=== PATIENT | female | born 1975 | race Caucasian/White ===

== ENCOUNTER → 2018-03-05 | Outpatient (CLI) | payer OTHER ==
[~2018-03-05] VITALS: Ht 264.2 cm; Wt 136.6 kg
[~2018-03-05] MED LIST: AMOX875T PO; BCPILLS PO; MONT1TAB5 PO; ONDA4TAB10 SL; OXYC-737 PO
[2018-03-05 14:53] VITALS: BP 139/81; PULSE 102; Ht 264.2 cm; Wt 136.6 kg
== END | disposition home or self-care (01) ==
LOC: C.NEUR 13:54
PROVIDERS: ATTEND Internal Medicine Pulmonary Disease
DX: G47.30 Sleep apnea, unspecified (principal); G47.00 Insomnia, unspecified; E66.01 Morbid (severe) obesity due to excess calories; R53.83 Other fatigue; R06.83 Snoring; J34.2 Deviated nasal septum

== ENCOUNTER 2024-08-01 06:37 | Observation (INO) ==
--- NOTE | 2024-07-01 11:34 | PAT Medication Instructions ---
Medication Instructions Date of Service July 01, 2024 Home Medications Medication Instructions Recorded albuterol sulfate 90 mcg/actuation 3 puffs inhalation Q6H PRN 03/03/20 aerosol inhaler shortness of breath or wheezing #8.5 grams estradiol 0.05 mg/24 hr semiweekly 1 patch transdermal 2XWK #8 ea 06/17/24 transdermal patch estradiol 0.01% (0.1 mg/gram) 1 appful vaginal 3XWK #42.5 grams 06/24/24 vaginal cream (Estrace) acetaminophen 500 mg capsule 1,000 mg PO Q6H PRN montelukast 10 mg tablet 10 mg PO HS albuterol sulfate 90 mcg/actuation aerosol inhaler 3 puffs inhalation Q6H PRN artificial tears(hypromellose) 0.3 % eye gel (GenTeal Tears Severe) 1 drp OPB HS pediatric multivitamin no.7-folic acid 100 mcg chewable tablet (Flintstones Tab Chew) 100 mcg PO DAILY carboxymethylcellulose sodium 0.25 % eye drops in a dropperette (TheraTears) 1 drp ophthalmic (eye) QAM PRN creatine monohydrate 4 ea PO DAILY diphenhydramine HCl 25 mg capsule (Benadryl) 25 mg PO TID PRN escitalopram oxalate 5 mg tablet 5 mg PO HS melatonin 3 mg tablet 3 mg PO HS PRN estradiol 0.05 mg/24 hr semiweekly transdermal patch 1 patch transdermal 2XWK estradiol 0.01% (0.1 mg/gram) vaginal cream (Estrace) 1 appful vaginal 3XWK fexofenadine 180 mg tablet (Allergy Relief (fexofenadine)) 180 mg PO QAM fluticasone propionate 50 mcg/actuation nasal spray,suspension 2 spray intranasal QAM PRN meloxicam 15 mg tablet 15 mg PO QAM progesterone micronized 100 mg capsule (Prometrium) 100 mg PO HS Continue as directed carboxymethylcellulose sodium 0.25 % eye drops in a dropperette (TheraTears) 1 d rp ophthalmic (eye) QAM PRN(if needed) fluticasone propionate 50 mcg/actuation nasal spray,suspension 2 spray intranasal QAM PRN(if needed) ASK your surgeon for instructions meloxicam 15 mg tablet 15 mg PO QAM ASK your prescriber and surgeon estradiol 0.05 mg/24 hr semiweekly transdermal patch 1 patch transdermal 2XWK progesterone micronized 100 mg capsule (Prometrium) 100 mg PO HS STOP taking 2 weeks before surgery (or as soon as possible if surgery is within 2 weeks) creatine monohydrate 4 ea PO DAILY STOP taking 24 hours before surgery estradiol 0.01% (0.1 mg/gram) vaginal cream (Estrace) 1 appful vaginal 3XWK DO NOT take the morning of surgery pediatric multivitamin no.7-folic acid 100 mcg chewable tablet (Flintstones Tab Chew) 100 mcg PO DAILY diphenhydramine HCl 25 mg capsule (Benadryl) 25 mg PO TID PRN fexofenadine 180 mg tablet (Allergy Relief (fexofenadine)) 180 mg PO QAM Take morning of surgery With a small sip of water, OTHERWISE NOTHING TO EAT OR DRINK AFTER MIDNIGHT: acetaminophen 500 mg capsule 1,000 mg PO Q6H PRN(if needed) albuterol sulfate 90 mcg/actuation aerosol inhaler 3 puffs inhalation Q6H PRN (use if needed; please bring with you to hospital day of surgery if possible) Take evening before surgery acetaminophen 500 mg capsule 1,000 mg PO Q6H PRN(if needed) albuterol sulfate 90 mcg/actuation aerosol inhaler 3 puffs inhalation Q6H PRN(if needed) artificial tears(hypromellose) 0.3 % eye gel (GenTeal Tears Severe) 1 drp OPB HS diphenhydramine HCl 25 mg capsule (Benadryl) 25 mg PO TID PRN(if needed) escitalopram oxalate 5 mg tablet 5 mg PO HS melatonin 3 mg tablet 3 mg PO HS PRN(if needed) Other Notes If you have any questions please call us at [phone] or [phone] or [phone] or [phone]
--- NOTE | 2024-07-13 08:28 | Anesthesiology Consultation ---
Date of Service July 13, 2024 Assessment & Plan (1) Encounter for pre-operative examination: Plan - check urine test STAT am DOS. - anesthesia concerns: patient states would like general anesthesia for upcoming surgery due to history of awareness under spinal with sedation for previous orthopedic surgery at [facility]. She is agreeable to peripheral nerve block with general anesthesia. Surgeon's office made aware. Outpatient joint assessment: Patient is currently scheduled for inpatient pathway. If re-evaluated and patient/surgeon requests outpatient pathway, patient is acceptable candidate for outpatient joint program from anesthesia standpoint pending surgeon's office assessment of pt motivation/support/completion of same day joint program preop requirements. Chart Review Chart Review: Acceptable Risk for Surgery and Patient seen in Pre Admission Testing Teaching & Discussion Pre-Anesthesia Teaching/Discussion Notes: Instructed NPO after midnight before surgery, except medications with 15 cc of water. Medication instructions provided according to the PAT guidelines. History Surgery Operation Date: 08/01/24 08:50 Proposed Procedures p Left Total Knee Arthroplasty - Gustabo Cedeno MD Height/Weight Height: 5 ft 8 in Weight: 114.5 kg Allergies Allergy/AdvReac Type Severity Reaction Status Date / Time No Known Drug Allergies Allergy Verified 06/29/24 08:27 Medications Home Medications Medication Instructions Recorded Confirmed Last Taken acetaminophen 500 mg capsule 1,000 mg PO Q6H PRN Pain 08/19/19 06/29/24 07/09/22 montelukast 10 mg tablet 10 mg PO HS 08/19/19 06/29/24 07/09/22 albuterol sulfate 90 mcg/actuation 3 puffs inhalation Q6H PRN 03/03/20 06/29/24 Unknown aerosol inhaler shortness of breath or wheezing #8.5 grams artificial tears(hypromellose) 0.3 1 drp OPB HS 03/03/20 06/29/24 07/09/22 % eye gel (GenTeal Tears Severe) pediatric multivitamin no.7-folic 100 mcg PO DAILY prn 03/03/20 06/29/24 07/03/22 acid 100 mcg chewable tablet (Flintstones Tab Chew) carboxymethylcellulose sodium 0.25 1 drp ophthalmic (eye) QAM PRN 07/01/22 06/29/24 07/10/22 % eye drops in a dropperette dryness (TheraTears) creatine monohydrate 4 ea PO DAILY 07/01/22 06/29/24 07/03/22 diphenhydramine HCl 25 mg capsule 25 mg PO TID PRN Allergy Symptoms 07/01/22 06/29/24 07/05/22 (Benadryl) escitalopram oxalate 5 mg tablet 5 mg PO HS 07/01/22 06/29/24 07/09/22 melatonin 3 mg tablet 3 mg PO HS PRN Sleep 07/01/22 06/29/24 07/06/22 estradiol 0.05 mg/24 hr semiweekly 1 patch transdermal 2XWK #8 ea 06/17/24 06/29/24 Unknown transdermal patch estradiol 0.01% (0.1 mg/gram) 1 appful vaginal 3XWK #42.5 grams 06/24/24 06/29/24 Unknown vaginal cream (Estrace) fexofenadine 180 mg tablet 180 mg PO QAM 06/29/24 06/29/24 Unknown (Allergy Relief (fexofenadine)) fluticasone propionate 50 2 spray intranasal QAM PRN 06/29/24 06/29/24 Unknown mcg/actuation nasal Congestion spray,suspension meloxicam 15 mg tablet 15 mg PO QAM 06/29/24 06/29/24 Unknown progesterone micronized 100 mg 100 mg PO HS 06/29/24 06/29/24 Unknown capsule (Prometrium) Past Medical History Medical History (Updated 07/13/24 @ 08:25 by Crystal Garzon PA-C) Asthma controlled, stable per pt; last albuterol inhaler one year ago Degenerative arthritis of knee, bilateral Environmental and seasonal allergies History of abnormal cervical Pap smear History of anemia History of anxiety Hx of migraines Insomnia Osteoarthritis Scoliosis "Mild" Sleep apnea CPAP-compliant Patient denies h/o stroke, seizures, heart attack, heart failure, DM, HTN, blood clots/DVTs or blood transfusions. Exercise / Class Metabolic Activity II 4-5 Yardwork/Stairs/Walk up hill (denies chest discomfort or shortness of breath with one flight of stairs) Past Family History Family History Father Hypertension Grandmother Diabetes Thyroid disease Mother Dyslipidemia Sinusitis Hypertension Other Lung cancer No family history of adverse response to anesthesia No family history of bleeding disorder Denies family history of Ovarian cancer Prostate cancer Myocardial infarction Breast cancer Colorectal cancer Past Surgical History Surgical History History of anesthesia reaction "Takes a while to initially work" Slow to wake Was also told for 2019 MONISHA ([facility])- was given spinal and mid-way required general anesthesia History of section 2004- twins/gestational surrogacy History of cholecystectomy 2015 History of colonoscopy History of gynecologic surgery Cervical loop electrosurgery (2013) History of hip surgery As an for right hip dislocation during (1976) "complex surgery" History of nasal surgery Repair and partial reconstruction following dog bite (1978) History of postoperative nausea and vomiting History of right hip replacement (2019) [facility] History of surgery on left wrist removal of ganglion cyst (2008) torn TFCC (2016) Skin tag of labia removed Status post LASIK surgery of both eyes 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 Physical Exam Vital Signs Vitals BP 109/72 P 74 TEMP 98.3 SP02 96% on RA RESP 19 Physical Patient resting comfortably in chair in no acute distress, alert and oriented, responding appropriately throughout visit Full cervical extension range of motion without pain TMD 3.5 finger breadths Mallampati Score 3 Dentition: one crown, denies chipped or loose teeth, caps, implants or bridges Lungs: normal respiratory effort. Good air movement, clear throughout to auscultation, no adventitious breath sounds Cardiac: regular rate and rhythm, no murmurs noted Carotid arteries: negative bruit bilat Lab Results Anesthesia Preop Results Results Anesthesia Widget: WBC 7.45 K/ul (4.8-10.8) 07/13/24 Hgb 12.6 g/dl (12.0-16.0) 07/13/24 Hct 36.1 % (37.0-47.0) L 07/13/24 Plt 292 K/uL (130-400) 07/13/24 Na 138 mmol/L (136-145) 07/13/24 K 4.5 mmol/L (3.5-5.1) 07/13/24 Cl 103 mmol/L (98-107) 07/13/24 CO2 29 mmol/L (21-32) 07/13/24 BUN 16 mg/dl (6-23) 07/13/24 Creat 0.64 mg/dl (0.6-1.2) 07/13/24 Glucose Level 95 mg/dl (70-99(Fasting)) 07/13/24 PT 10.1 Seconds (9.0-12.0) 07/13/24 PTT 26 Seconds (21-31) 07/13/24 INR 0.9 (0.9-1.1) 07/13/24 Blood Type A Negative 07/13/24 Antibody Screen NEGATIVE 07/13/24 Testing Electrocardiogram Date: 07/13/24 Sinus bradycardia, rate 56 bpm Chest X-Ray Date: 07/13/24 No acute cardiopulmonary findings.
--- NOTE | 2024-07-27 11:04 | History & Physical Report ---
Date of Service July 27, 2024 Assessment & Plan (1) Degenerative arthritis of knee, bilateral: 48-year-old female with a history of right total hip replacement done 4 years ago for dysplasia with bilateral knee DJD. Her exam is a lot more severe than what her right x-rays would suggest. She has failed all conservative measures. Her pain discomfort stiffness is pretty incapacitating and making it difficult for her to do her job. There is really no other treatment short of knee replacements less likely to help her at this point. Plan: We discussed treatment option including further conservative versus operative mention. She strongly desiring surgical management at this point to try and maintain her function and health. In light of this we will proceed with a left knee replacement. I will will see how she does with this side but she is probably going need this right knee done in the [id number] future. The risk minutes of total knee replacement were explained and she understands. Informed consent was obtained. She apparently had a bad experience with spinal anesthesia with her hip as they did not sedate her enough. She is requesting of peripheral nerve block and a general anesthesia as per the anesthesia team. Will proceed along this course. We use aspirin for DVT prophylaxis. She is and lives by herself but she is planning on having family help her and assist in her care postoperatively and she is believe planning to go stay with family for a period of time afterwards. (2) History of right hip replacement: History of Present Illness Chief Complaint: . Bilateral knee pain, discomfort and stiffness left side greater than the right. Primary Care Provider: Liban Henderson MD . The patient is a 48-year-old female who presents for second opinion and definitive treatment of her knees. She she has a 3 to 4-year history of gradual increasing bilateral knee pain discomfort described to gotten worse over time. She does have a history of right hip dysplasia and had initial surgery many years ago and then had a hip replacement at [place] back in 2019. Over the past 4 years she developed increased pain discomfort and stiffness in her knees. She is on Mobic which provides minimal relief. She has had injections including both steroid shots and viscosupplementation which have become less successful over time. 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 She has seen the people at [facility] and they have apparently refused to do her surgery based on her young age. She is having difficulty getting around and doing her job and would like to be better. She like to get more functional. Allergies Allergy/AdvReac Type Severity Reaction Status Date / Time No Known Drug Allergies Allergy Verified 06/29/24 08:27 Home Medications Medication Instructions Recorded Confirmed Type acetaminophen 500 mg capsule 1,000 mg PO Q6H PRN Pain 08/19/19 06/29/24 History montelukast 10 mg tablet 10 mg PO HS 08/19/19 06/29/24 History albuterol sulfate 90 mcg/actuation 3 puffs inhalation Q6H PRN 03/03/20 06/29/24 Rx aerosol inhaler shortness of breath or wheezing #8.5 grams artificial tears(hypromellose) 0.3 1 drp OPB HS 03/03/20 06/29/24 History % eye gel (GenTeal Tears Severe) pediatric multivitamin no.7-folic 100 mcg PO DAILY prn 03/03/20 06/29/24 History acid 100 mcg chewable tablet (Flintstones Tab Chew) carboxymethylcellulose sodium 0.25 1 drp ophthalmic (eye) QAM PRN 07/01/22 06/29/24 History % eye drops in a dropperette dryness (TheraTears) creatine monohydrate 4 ea PO DAILY 07/01/22 06/29/24 History diphenhydramine HCl 25 mg capsule 25 mg PO TID PRN Allergy Symptoms 07/01/22 06/29/24 History (Benadryl) escitalopram oxalate 5 mg tablet 5 mg PO HS 07/01/22 06/29/24 History melatonin 3 mg tablet 3 mg PO HS PRN Sleep 07/01/22 06/29/24 History estradiol 0.05 mg/24 hr semiweekly 1 patch transdermal 2XWK #8 ea 06/17/24 06/29/24 Rx transdermal patch estradiol 0.01% (0.1 mg/gram) 1 appful vaginal 3XWK #42.5 grams 06/24/24 06/29/24 Rx vaginal cream (Estrace) fexofenadine 180 mg tablet 180 mg PO QAM 06/29/24 06/29/24 History (Allergy Relief (fexofenadine)) fluticasone propionate 50 2 spray intranasal QAM PRN 06/29/24 06/29/24 History mcg/actuation nasal Congestion spray,suspension meloxicam 15 mg tablet 15 mg PO QAM 06/29/24 06/29/24 History progesterone micronized 100 mg 100 mg PO HS 06/29/24 06/29/24 History capsule (Prometrium) Past Med/Surg History Problem List MARY ALICE (stress urinary incontinence, female) Encounter for pre-operative examination Tonsillar hypertrophy Seasonal allergies (Chronic) Deviated nasal septum (Chronic) Medical History Degenerative arthritis of knee, bilateral Scoliosis "Mild" Osteoarthritis History of anemia Insomnia History of anxiety Hx of migraines Environmental and seasonal allergies Asthma controlled, stable per pt; last albuterol inhaler one year ago Sleep apnea CPAP-compliant History of abnormal cervical Pap smear Surgical History History of anesthesia reaction "Takes a while to initially work" Slow to wake Was also told for 2019 MONISHA ([facility])- was given spinal and mid-way required general anesthesia History of postoperative nausea and vomiting Skin tag of labia removed History of colonoscopy [place] teeth removed History of right hip replacement (2019) [facility] Status post LASIK surgery of both eyes 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 (2006) History of surgery on left wrist removal of ganglion cyst (2008) torn TFCC (2016) History of nasal surgery Repair and partial reconstruction following dog bite (1978) History of hip surgery As an for right hip dislocation during (1976) "complex surgery" History of section 2004- twins/gestational surrogacy History of gynecologic surgery Cervical loop electrosurgery (2013) History of cholecystectomy 2015 Family History Father Hypertension Grandmother Diabetes Thyroid disease Mother Dyslipidemia Sinusitis Hypertension Other Lung cancer No family history of adverse response to anesthesia No family history of bleeding disorder Denies family history of Ovarian cancer Prostate cancer Myocardial infarction Breast cancer Colorectal cancer Social History Smoking Status: Never smoker Second Hand Exposure: Yes (as a child); Do You Dip or Chew Tobacco: No; Hx Alcohol Use: Yes Hx Substance Use: No Preferred Language: Bulgarian Communication Ability: Effective Workers Compensation Adjuster Required: No Beliefs That Will Affect Care: None marital status: Current Living Situation: Alone current occupational status: employed 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 Physical Exam . Physical examination reveals a pleasant 48-year-old female. She walks with a bit of a shuffling and flexed knee gait. Examination of the left knee reveals a small knee effusion. Moderate soft tissue envelope. She has about a 15 degree flexion contracture and only bends to about 100 degrees. Quite stiff. No particular pain with hip motion. Examination of the right knee reveals a fairly similar neutral alignment but a stiff knee. She has about a 10 to 15 degree flexion contracture and best about 105 on the side. No instability. No particular pain with hip motion. Constitutional WD/WN, vitals as above Neck trachea midline, no thyromegaly Respiratory normal respiratory effort, lungs clear to auscultation Cardiovascular RRR, no murmur, no edema Gastrointestinal (Abdomen) normal bowel sounds, soft, nontender, no hepatosplenomegaly Results & Data Results & Data Laboratory Results . Diagnostic Findings . X-rays of both knees were reviewed. Shows moderately advanced tricompartment DJD. She got osteophytes in all 3 compartments. She is got a pretty well- preserved joint space but clear degenerative changes with osteophytes throughout. They both knees are pretty equal. I did get an x-ray of her pelvis and reviewed this as well. This shows a right uncemented hip replacement components look very good position without problems. PG Care Time/CCT Total # of Minutes Spent Total Time Spent with Patient: Total time spent is greater than 50% in coordination of care (as documented) at patient's floor/unit and/or counseling patient: Coding Level of Care Code None Diagnoses Degenerative arthritis of knee, bilateral M17.0 History of right hip replacement Z96.641
[~2024-08-01 06:37] MED LIST changes: -AMOX875T PO; -BCPILLS PO; -MONT1TAB5 PO; -ONDA4TAB10 SL; -OXYC-737 PO; +ROPIVACAINE 0.5% 5 MG/ML 30 ML VIAL ONE
--- NOTE | 2024-08-01 06:52 | History & Physical Bridge Note ---
Date of Service August 01, 2024 History & Physical Bridge Note I have examined the patient, reviewed the History & Physical and in the interval since the performance of the History & Physical I have noted the following changes of clinical significance: no changes noted
[2024-08-01] MEDS: ACETAMINOPHEN 500 MG TAB PO SCH ×2 (07:12→13:50)
[2024-08-01] MEDS: CeleBREX 200 MG CAP PO SCH (07:13)
[2024-08-01] MEDS: METOCLOPRAMIDE HCL 10 MG TABLET PO SCH (07:13)
[2024-08-01] MEDS: LR 60ML/HR IV SCH (07:13)
[2024-08-01] MEDS: FAMOTIDINE 20 MG TAB PO SCH (07:13)
[2024-08-01] MEDS: LR 15ML/HR IV SCH (07:13)
[2024-08-01] MEDS ORDERED: MIDAZOLAM HCL 1 MG/ML 2ML VIAL ONE ×2 (07:25)
[2024-08-01] MEDS: dexAMETHasone**PF** 10 MG/ML VIAL ONE (07:26)
[2024-08-01] MEDS ORDERED: fentaNYL citrate PF 100 MCG/2 ML VIAL ONE (07:26)
[2024-08-01] MEDS ORDERED: LIDOCAINE 2% 2 ML VIAL/AMP(20MG/ML) INFIL ONE (07:26)
[2024-08-01] MEDS: DEXAMETHASONE SOD INJ 4 MG/ML VIAL IV STA (07:27)
[2024-08-01] MEDS ORDERED: HYDROmorphone INJ 1 MG/ML SYRINGE IV PRN (08:16)
[2024-08-01] MEDS ORDERED: fentaNYL citrate PF 100 MCG/2 ML VIAL IV PRN (08:16)
[2024-08-01] MEDS ORDERED: ATROPINE SULFATE 0.1 MG/ML 10ML SYR IV PRN (08:16)
[2024-08-01] MEDS ORDERED: ePHEDrine sulfate 50 MG/ML AMP IV PRN (08:16)
[2024-08-01] MEDS ORDERED: ONDANSETRON INJ 2 MG/ML 2 ML VIAL IV PRN ×2 (08:16→11:51)
[2024-08-01] MEDS: ceFAZolin 2000MG 2,000 MG/15 ML SYR IV SCH ×2 (09:12→17:19)
[2024-08-01] MEDS ORDERED: GLYCOPYRROLATE 0.2 MG/ML VIAL ONE (09:28)
[2024-08-01] MEDS ORDERED: PROPOFOL IV EMULSION 10 MG/ML 20 ML VIAL IV ONE (09:29)
[2024-08-01] MEDS ORDERED: KETAMINE HCL 10MG/ML SYR ONE (09:35)
[2024-08-01] MEDS ORDERED: HYDROmorphone INJ 2 MG/ML SYR/VIAL ONE (09:40)
[2024-08-01] MEDS ORDERED: ONDANSETRON INJ 2 MG/ML 2 ML VIAL ONE (09:41)
[2024-08-01] MEDS: ORTHO JOINT ANESTHETIC ONE (09:56)
[2024-08-01] MEDS: TRANEXAMIC ACID 1,000 MG **IV Intra-op IV SCH (10:12)
[2024-08-01] MEDS: ROPIV 0.5% 246mg, Ketorolac 30mg, EPINEPHrine 0.5mg in NSS INFIL SCH (10:36)
--- NOTE | 2024-08-01 11:10 | Operative Report ---
PG Post Operative Report Pre & Post Diagnosis Operation Date: 08/01/24 08:50 Pre-Op Diagnosis: Left Knee Osteoarthritis Post-Op Diagnosis: Left Knee Osteoarthritis I identified the patient and participated in the time-out.: Yes Procedure Operation Date: 08/01/24 08:50 Actual Procedures p Left Total Knee Arthroplasty(Left) - Gustabo Cedeno MD Surgeon Gustabo Cedeno MD Greenhouse Grower Eliu Benoit PA-C Estimated Blood Loss 50 Findings Consistent with Post-Op Diagnosis Operative findings good advanced left knee arthritis. She had focal grade 4 changes in the distal femur both medial lateral sides but not extensive disease but there was an area where she had a lot of bony overgrowth on the lateral femoral condyle which were clearly impinging on the tibia with range of motion and limited range of motion. She had advanced grade 4 [id number] disease of the patellofemoral compartment. Moderate-sized joint effusion. Specimens Left knee sent for pathology. Anesthesia Type General Regional Complications none Disposition Accompanied Patient To Recovery: Yes Indications Patient is a 48-year-old female who has a history of multiple orthopedic issues over the years. She did have her right hip replaced about 4 years ago at [place] due to hip dysplasia. She can became bothered by increasing bilateral knee pain discomfort left side greater than the right. She developed significant stiffness. She been through all extensive conservative treatment without adequate relief. X-ray showed moderate arthritis. She had more advanced patellofemoral disease. Jose has signs of tricompartment disease on her x-rays and she elected proceed with total knee arthroplasty as this was affecting her quality of life. Description of Procedure Operative implants consist of: 1. Biomet Vanguard size 65 left posterior Byce femoral component. 2. Biomet size 71 tibial tray. 3. 10 mm post stabilized polyethylene insert. 4. 31 x 8 all poly patella. The patient was taken to the op room, identified, and placed on the operating table in the supine position. All contact areas were appropriately padded. IV antibiotics fibra anesthesia team. A general anesthetic was implemented at the patient's request. She did have a nerve block placed in the holding area. Jackson catheter was placed in sterile fashion. A left thigh turn was then placed in the left lower extremity was then prepped and draped in usual sterile fashion. The left leg was elevated and exsanguinated with use of an Esmarch and a turn was placed at 300 mmHg. An anterior approach to the left knee was then performed to longitudinal incision centered over the patella. Sharp dissection was carried through subcutaneous tissue down the extensor mechanism. A medial parapatellar arthrotomy incision was made. Some subperiosteal dissection was carried out medially. The fat pad was dissected from Neath patella tendon. The lateral patellofemoral ligament was released. Patella subluxated laterally and the knee was flexed. The osteophytes were taken off the distal femur. The ACL and PCL were then released from distal femur and the tibia subluxated anteriorly. The external tibial alignment jig was then placed on the interface the tibia and adjusted 14 mm medially. The proximal tibial cut was made remove about 3 to 4 mm of bone from the medial side. Tibia sized a size 71. Attention drawn the femur. The distal femur examined the sharp drop with intramedullary canal was suction. A left 5 degree valgus cutting guide was placed. The distal femoral cutting block was pinned in place. This femoral cut was made to take an additional 3 mm of bone off distal femur. The femur was then sized to a size 67.5. The 8 cutting block was pinned parallel to the epicondylar axis. This was 6 degrees of external rotation. The anterior cut, anterior chamfer, posterior cut, posterior chamfer cuts were made. The box cutting guide was placed. However on placing this it was fairly loose. Therefore I tried the 65 guide with just a little bit tight. Therefore, we placed a 65 AP cutting block and revisited and recut the anterior cut and the anterior chamfer cut. The 65 cutting guide was then placed and the box cut was made. The knee was flexed. The remnants of the medial and lateral menisci were excised. The osteophytes taken off the posterior aspect the femur. A trial femoral component was placed. Tibial tray was pinned in Halley external rotation and the drill and stem punch were used to create defect in proximal tibia for the tibial tray. The knee was then trialed and 10 mm insert fit most appropriately. Attention drawn the patella. The patella was cleaned of all soft tissues. Patella was quite worn. It was measured to about 20 mm in thickness was cut down to 13. Was sized to a size 31 patella. The lug holes were drilled for 31 patella. The lateral osteophytes removed. Patella button was placed. Knee was taken through range of motion patella tracked nicely with no thumbs test. Attention was then drawn to place the permanent components. All trial components were removed. Bone plug was placed into this femur limit blood loss. A double batch Pal[place]os G cement was mixed. A Biomet Vanguard size 65 post stabilized femoral component, size 71 tibial tray, a 10 mm posterior Byce polyethylene insert, and a 31 x 8 all poly patella then cemented in place. The knee was brought out into full extension till cement hardened. Final cement check was then performed. The pericapsular tissues were injected with total of 100 cc of Ortho mix. Patient did receive 1 g tranexamic acid. The tourniquet was then let down for final tourniquet time of 58 minutes. Hemostasis assured use electrocautery. Extensor mechanism was then closed with combination 1 PDS suture and Vicryl suture in [id number] fashion. Extensor mechanism checked found to be intact the subcutaneous tissue then closed with 2 Dexon suture in a buried interrupted fashion and the skin was closed skin karen. Leg was then cleaned and dried and sterile dressing with Xeroform, 4 fours, sterile cast padding, Brennen bandage were then applied. The patient was then brought out of general anesthesia and transferred to the recovery room in stable condition. Patient tolerated procedure well and there were no complications. Eliu Benoit, my physician blood and plasma laboratory assistant, was present for the entire procedure. His assistance was essential and required for appropriate patient positioning, prepping and draping, surgical exposure, performing the technical details of the operation, placement the implants, closure of the wound, and placement of the sterile bandage. I attest to the content of the Intraoperative Record and any orders documented therein. Any exceptions are noted below.
--- NOTE | 2024-08-01 11:50 | XRay Report ---
XR knee LT 1 or 2V routine CLINICAL HISTORY: Postoperative evaluation. COMPARISON: Left knee radiographs June 20, 2024. FINDINGS: Alignment of the total left knee arthroplasty is anatomic. There is no periprosthetic frac ture or unexpected radiopaque foreign body. There are skin karen. IMPRESSION: Expected findings following total left knee arthroplasty. ACT 112: Negative or not required by law. Electronically signed by: Jhony Palacios M.D. 08/01/2024 11:48 AM
[2024-08-01] MEDS ORDERED: NALOXONE HCL 0.4 MG/1 ML VIAL/CARP IV PRN (11:51)
[2024-08-01] MEDS ORDERED: ALBUTEROL HFA 8 GM INHALER INH PRN (11:51)
[2024-08-01] MEDS ORDERED: MAGNESIUM HYDROXIDE SUSP 30 ML UDC PO PRN (11:51)
[2024-08-01] MEDS ORDERED: METOCLOPRAMIDE HCL INJ 5 MG/ML 2 ML VIAL IV PRN (11:51)
[2024-08-01] MEDS ORDERED: HYDROmorphone INJ 0.5 MG/0.5 ML SYR IV PRN (11:51)
[2024-08-01] MEDS ORDERED: CARBOXYMETHYLCELLULOSE SODIUM 0.25% OP PRN (11:51)
[2024-08-01] MEDS ORDERED: MELATONIN 3 MG TAB PO PRN (11:51)
[2024-08-01] MEDS ORDERED: NON-FORMULARY MEDICATION (Estradiol [Estrace] 0.01 % (0.1 mg/gram) cream) PV SCH (11:51)
[2024-08-01] MEDS ORDERED: bisacodyL 10 MG SUPP PR PRN (11:51)
[2024-08-01] MEDS ORDERED: diphenhydrAMINE Capsule 25 MG CAP PO PRN (11:51)
[2024-08-01] MEDS ORDERED: FLUTICASONE PROPIONATE NA SPR 16 GM BTL NAE PRN (11:51)
[2024-08-01] MEDS ORDERED: ALUMINUM/MAGNESIUM SUSP 30 ML UDC PO PRN (11:51)
[2024-08-01] MEDS: KETOROLAC 30 MG/ML VIAL IV SCH (12:29)
--- NOTE | 2024-08-01 13:46 | Anesthesiology Progress Note ---
Date of Service August 01, 2024 Anesthesia Post Procedure Vital Signs Vital Signs: Temp Pulse Pulse Resp BP BP Pulse Ox 08/01/24 12:55 36.4 C L 99 H 16 117/74 95 08/01/24 12:32 95 H 14 136/79 95 08/01/24 12:01 08/01/24 11:51 36.8 C 70 16 106/73 95 08/01/24 11:40 77 12 112/69 94 08/01/24 11:35 36.8 C 82 15 113/71 95 08/01/24 11:25 86 13 125/70 96 08/01/24 11:15 92 H 12 107/66 95 08/01/24 11:05 36.5 C 102 H 16 116/80 95 08/01/24 07:08 36.8 C 64 18 129/75 96 O2 Del Method O2 Flow Rate 08/01/24 12:55 Nasal Cannula 2 08/01/24 12:32 Nasal Cannula 2 08/01/24 12:01 Nasal Cannula 2 08/01/24 11:51 Nasal Cannula 2 08/01/24 11:40 Nasal Cannula 2 08/01/24 11:35 Nasal Cannula 2 08/01/24 11:25 Oxymask 6 08/01/24 11:15 Oxymask 15 08/01/24 11:05 Oxymask 15 08/01/24 07:08 Room Air Pain Intensity Bilateral Knee: Pain Intensity: 4 Left Knee: Pain Intensity: 3 Transfer of Care Handoff Completed per policy Notes Mental Status: alert / awake / arousable and participated in evaluation Patient Amnestic to Procedure: Yes Nausea / Vomiting: adequately controlled Pain: adequately controlled Airway Patency, RR, SpO2: stable & adequate BP & HR: stable & adequate Hydration State: stable & adequate Anesthetic Complications: no major complications apparent and Pt Satisfied with anesthetic care
[2024-08-01] MEDS: ESTRADIOL 0.05 MG/24HRS TDSY TD SCH (14:10)
[2024-08-01] MEDS: oxyCODONE HCL IR 5 MG TAB (IMMEDIATE RELEASE) PO PRN (16:22)
[2024-08-01] MEDS: ASCORBIC ACID 500 MG TAB PO SCH (17:19)
[2024-08-01] MEDS: TRANEXAMIC ACID / 0.7% NACL 1,000 MG/100 ML BAG IV SCH (17:19)
[2024-08-01 19:25] VITALS: RESP 16
[2024-08-01] MEDS: ASPIRIN 81 MG ECTAB PO SCH (20:39)
[2024-08-01] MEDS: DOCUSATE SODIUM 100 MG CAP PO SCH (20:39)
[2024-08-01] MEDS: SENNA 8.6 MG TAB PO SCH ×2 (20:40)
[2024-08-01] MEDS: ESCITALOPRAM OXALATE 10 MG TAB PO SCH (20:40)
[2024-08-01] MEDS: MONTELUKAST SODIUM 10 MG TABLET PO SCH (20:40)
[2024-08-01] MEDS: ARTIFICIAL TEARS OP SCH (20:41)
[2024-08-02 06:38] LABS: Hemoglobin 11.5 g/dl (12.0-16.0); Mean Corpuscular Hemoglobin 30.7 pg (25.0-34.0); Mean Corpuscular Hgb Conc 34.8 g/dL (32.0-36.0); Mean Platelet Volume 9.2 fL (9.4-12.4); Platelet Count 307 K/uL (130-400); RDW Standard Deviation 41.7 fL (36.4-46.3); Red Blood Count 3.75 M/uL (4.20-5.40); White Blood Count 14.97 K/ul (4.8-10.8)
[2024-08-02 06:59] LABS: BUN Creatinine Ratio 15.6 (10-20); Calcium 8.8 mg/dl (8.6-10.3); Creatinine Clr Calc Pharmacy 144.1 ml/min
[2024-08-02 07:38] VITALS: PULSE 66; TEMP 98.2; O2SAT 96
--- NOTE | 2024-08-02 07:51 | Orthopedic Progress Note ---
Date of Service August 02, 2024 Assessment & Plan (1) Status post left knee replacement: Plan: 48-year-old female postop day 1 from a left knee replacement doing pretty well. Pains controlled reasonably well. She is neurologically intact. Plan: 1. DVT prophylaxis including Thiede teds, SCDs, aspirin twice a day. 2. PT/OT. She can fully weight-bear as tolerated in his left knee. 3. Pain control. Doing okay with current pain regimen. 4. Disposition. Plan to discharge to home with some home health if she does okay in therapy today. Admission and Anticipated Discharge Date Admission Date: August 01, 2024 Subjective 48-year-old female postop day 1 from a left knee replacement. She had a little bit of a rougher night but doing a bit better this morning. No chest pain or shortness of breath just knee pain. No other complaints. Physical Exam Physical Exam: Physical nation is a pleasant middle-age female. She is lying in bed looks pretty comfortable. Examination left knee reveals the dressing be clean dry and intact. She can dorsiflex and plantarflex her foot appropriately. She is neurologically intact. Respiratory: normal respiratory effort, lungs clear to auscultation Cardiovascular: RRR, no murmur, no edema Gastrointestinal (Abdomen): normal bowel sounds, soft, nontender, no hepatosplenomegaly Results & Data Vital Signs (Past 12 Hours) Vital Signs Temp Pulse Resp BP Pulse Ox O2 Del Method 08/02/24 07:37 36.8 C 66 16 134/80 96 Room Air 08/02/24 03:00 36.7 C 76 16 132/80 94 Room Air 08/01/24 23:00 36.6 C 84 16 130/84 97 Room Air Diagnostic Findings Hemoglobin is 11.5 hematocrit is 33.0. Electrolytes are stable.
[2024-08-02] MEDS: dexAMETHasone 10 MG in SYRINGE 0 ML IV SCH (08:41)
[2024-08-02] MEDS: MULTIVITAMIN CHEWABLE TAB PO SCH (08:42)
[2024-08-02] MEDS: FEXOFENADINE HCL 180 MG TAB PO SCH (08:42)
[2024-08-02] MEDS ORDERED: CREATINE MONOHYDRATE PO SCH (09:00)
[2024-08-02] MEDS ORDERED: MULTIVITAMIN TAB PO SCH (09:00)
[2024-08-02 11:43] VITALS: BP 129/75
== END 2024-08-02 12:37 | disposition home health service (06) ==
LOC: ASU 06:37 → 3E 06:37

== ENCOUNTER 2025-08-01 05:24 | Observation (INO) ==
--- NOTE | 2025-06-30 13:35 | PAT Medication Instructions ---
Medication Instructions Date of Service June 30, 2025 Home Medications Medication Instructions Recorded albuterol sulfate 90 mcg/actuation 3 puffs inhalation Q6H PRN 03/03/20 aerosol inhaler shortness of breath or wheezing #8.5 grams amoxicillin 500 mg tablet 2,000 mg (4 x 500 mg) PO .COMPLEX 02/07/25 #60 tabs estradiol 0.05 mg/24 hr semiweekly 1 patch transdermal 2XWK #24 ea 06/21/25 transdermal patch progesterone micronized 100 mg 100 mg PO HS #90 caps 06/21/25 capsule (Prometrium) estradiol 10 mcg vaginal tablet 10 mcg vaginal .twice week 1 month 06/27/25 (Vagifem) #8 tabs montelukast 10 mg tablet 10 mg PO HS albuterol sulfate 90 mcg/actuation aerosol inhaler 3 puffs inhalation Q6H PRN artificial tears(hypromellose) 0.3 % eye gel (GenTeal Tears Severe) 1 drp OPB BID PRN pediatric multivitamin no.7-folic acid 100 mcg chewable tablet (Flintstones Tab Chew) 100 mcg PO QPM carboxymethylcellulose sodium 0.25 % eye drops in a dropperette (TheraTears) 1 drp ophthalmic (eye) QAM PRN creatine monohydrate 1 ea PO DAILY diphenhydramine HCl 25 mg capsule (Benadryl) 25 mg PO TID PRN melatonin 3 mg tablet 3 mg PO HS PRN fexofenadine 180 mg tablet (Allergy Relief (fexofenadine)) 180 mg PO QAM fluticasone propionate 50 mcg/actuation nasal spray,suspension 2 spray intranasal QAM PRN amoxicillin 500 mg tablet 2,000 mg (4 x 500 mg) PO .COMPLEX bupropion HCl 75 mg tablet 75 mg PO TID dexmethylphenidate 10 mg capsule,extended release [id number] 10 mg PO QAM estradiol 0.05 mg/24 hr semiweekly transdermal patch 1 patch transdermal 2XWK progesterone micronized 100 mg capsule (Prometrium) 100 mg PO HS estradiol 10 mcg vaginal tablet (Vagifem) 10 mcg vaginal .twice week 1 month acetaminophen 500 mg tablet (Tylenol Extra Strength) 1,000 mg PO Q8H PRN meloxicam 15 mg tablet 15 mg PO QAM Continue as directed fluticasone propionate 50 mcg/actuation nasal spray,suspension 2 spray intranasal QAM PRN(if needed) amoxicillin 500 mg tablet 2,000 mg (4 x 500 mg) PO .COMPLEX ASK your surgeon for instructions meloxicam 15 mg tablet 15 mg PO QAM ASK your prescriber and surgeon estradiol 0.05 mg/24 hr semiweekly transdermal patch 1 patch transdermal 2XWK progesterone micronized 100 mg capsule (Prometrium) 100 mg PO HS STOP taking 2 weeks before surgery (or as soon as possible if surgery is within 2 weeks) creatine monohydrate 1 ea PO DAILY DO NOT take the morning of surgery diphenhydramine HCl 25 mg capsule (Benadryl) 25 mg PO TID PRN fexofenadine 180 mg tablet (Allergy Relief (fexofenadine)) 180 mg PO QAM dexmethylphenidate 10 mg capsule,extended release [id number] 10 mg PO QAM estradiol 10 mcg vaginal tablet (Vagifem) 10 mcg vaginal .twice week 1 month Take morning of surgery With a small sip of water, OTHERWISE NOTHING TO EAT OR DRINK AFTER MIDNIGHT: albuterol sulfate 90 mcg/actuation aerosol inhaler 3 puffs inhalation Q6H PRN (use if needed; please bring with you to hospital day of surgery if possible) artificial tears(hypromellose) 0.3 % eye gel (GenTeal Tears Severe) 1 drp OPB BID PRN(if needed) carboxymethylcellulose sodium 0.25 % eye drops in a dropperette (TheraTears) 1 drp ophthalmic (eye) QAM PRN(if needed) bupropion HCl 75 mg tablet 75 mg PO TID acetaminophen 500 mg tablet (Tylenol Extra Strength) 1,000 mg PO Q8H PRN(if needed) Take evening before surgery montelukast 10 mg tablet 10 mg PO HS albuterol sulfate 90 mcg/actuation aerosol inhaler 3 puffs inhalation Q6H PRN(if needed) artificial tears(hypromellose) 0.3 % eye gel (GenTeal Tears Severe) 1 drp OPB BID PRN(if needed) pediatric multivitamin no.7-folic acid 100 mcg chewable tablet (Flintstones Tab Chew) 100 mcg PO QPM diphenhydramine HCl 25 mg capsule (Benadryl) 25 mg PO TID PRN(if needed) melatonin 3 mg tablet 3 mg PO HS PRN(if needed) bupropion HCl 75 mg tablet 75 mg PO TID acetaminophen 500 mg tablet (Tylenol Extra Strength) 1,000 mg PO Q8H PRN(if needed) Other Notes If you have any questions please call us at [phone] or [phone] or [phone] or [phone]
--- NOTE | 2025-07-11 13:22 | Anesthesiology Consultation ---
Date of Service July 11, 2025 Assessment & Plan (1) Encounter for pre-operative examination: - patient requests same anesthetic approach as 08/01/24 left TKA: LMA#4 + PNB. No bolus ordered. - check urine test STAT am DOS. - Outpatient joint assessment: Patient is currently scheduled for inpatient pathway. If re-evaluated and patient/surgeon requests outpatient pathway, patient is acceptable candidate for outpatient joint program from anesthesia standpoint pending surgeon's office assessment of pt motivation/support/completion of same day joint program preop requirements. Chart Review Chart Review: Acceptable Risk for Surgery and Patient seen in Pre Admission Testing Teaching & Discussion Pre-Anesthesia Teaching/Discussion Notes: Instructed NPO after midnight before surgery, except medications with 15 cc of water. Medication instructions provided according to the PAT guidelines. History Surgery Operation Date: 08/01/25 07:00 Proposed Procedures p Right Total Knee Arthroplasty - Gustabo Cedeno MD Height/Weight Height: 5 ft 8.5 in Weight: 123.7 kg Allergies Allergy/AdvReac Type Severity Reaction Status Date / Time No Known Drug Allergies Allergy Verified 06/29/25 11:58 Medications Home Medications Medication Instructions Recorded Confirmed Last Taken montelukast 10 mg tablet 10 mg PO HS 08/19/19 06/29/25 07/31/24 22:00 albuterol sulfate 90 mcg/actuation 3 puffs inhalation Q6H PRN 03/03/20 06/29/25 Unknown aerosol inhaler shortness of breath or wheezing #8.5 grams artificial tears(hypromellose) 0.3 1 drp OPB BID PRN Dry Eyes 03/03/20 06/29/25 07/31/24 22:00 % eye gel (GenTeal Tears Severe) pediatric multivitamin no.7-folic 100 mcg PO QPM 03/03/20 06/29/25 07/25/24 acid 100 mcg chewable tablet (Flintstones Tab Chew) carboxymethylcellulose sodium 0.25 1 drp ophthalmic (eye) QAM PRN 07/01/22 06/29/25 07/31/24 09:00 % eye drops in a dropperette dryness (TheraTears) creatine monohydrate 1 ea PO DAILY 07/01/22 06/29/25 07/18/24 diphenhydramine HCl 25 mg capsule 25 mg PO TID PRN Allergy Symptoms 07/01/22 06/29/25 07/31/24 17:00 (Benadryl) melatonin 3 mg tablet 3 mg PO HS PRN Sleep 07/01/22 06/29/25 07/30/24 fexofenadine 180 mg tablet 180 mg PO QAM 06/29/24 06/29/25 07/31/24 09:00 (Allergy Relief (fexofenadine)) fluticasone propionate 50 2 spray intranasal QAM PRN 06/29/24 06/29/25 07/29/24 mcg/actuation nasal Congestion spray,suspension amoxicillin 500 mg tablet 2,000 mg (4 x 500 mg) PO .COMPLEX 02/07/25 06/29/25 Unknown #60 tabs bupropion HCl 75 mg tablet 75 mg PO TID 06/21/25 06/29/25 Unknown dexmethylphenidate 10 mg 10 mg PO QAM 06/21/25 06/29/25 Unknown capsule,extended release -42 estradiol 0.05 mg/24 hr semiweekly 1 patch transdermal 2XWK #24 ea 06/21/25 06/29/25 Unknown transdermal patch progesterone micronized 100 mg 100 mg PO HS #90 caps 06/21/25 06/29/25 Unknown capsule (Prometrium) estradiol 10 mcg vaginal tablet 10 mcg vaginal .twice week 1 month 06/27/25 06/29/25 Unknown (Vagifem) #8 tabs acetaminophen 500 mg tablet 1,000 mg PO Q8H PRN Pain 06/29/25 06/29/25 Unknown (Tylenol Extra Strength) meloxicam 15 mg tablet 15 mg PO QAM 06/29/25 06/29/25 Unknown Past Medical History Medical History ADHD Asthma "Environmental triggers" Controlled, stable per pt Degenerative arthritis of knee, bilateral Environmental and seasonal allergies History of abnormal cervical Pap smear History of anemia History of anxiety Hx of migraines Insomnia Osteoarthritis Scoliosis "Mild" Sleep apnea CPAP (compliant) Patient denies h/o stroke, seizures, heart attack, heart failure, DM, HTN, blood clots/DVTs or blood transfusions. Exercise / Class Metabolic Activity II 4-5 Yardwork/Stairs/Walk up hill (denies chest discomfort or shortness of breath walking up one flight of stairs) Past Family History Family History Father Hypertension Grandmother Diabetes Thyroid disease Mother Dyslipidemia Sinusitis Hypertension Other Lung cancer No family history of adverse response to anesthesia No family history of bleeding disorder Denies family history of Ovarian cancer Prostate cancer Myocardial infarction Breast cancer Colorectal cancer Past Surgical History Surgical History History of anesthesia reaction "Takes a while to initially work" Slow to wake. Was also told for 2019 MONISHA ([facility])- was given spinal and mid-way required general anesthesia History of section 2004- twins/gestational surrogacy History of cholecystectomy 2015 History of colonoscopy History of gynecologic surgery Cervical loop electrosurgery (2013) History of hip surgery As an infant for right hip dislocation during (1976) "complex surgery" History of nasal surgery Repair and partial reconstruction following dog bite (1978) History of postoperative nausea and vomiting History of right hip replacement (2019) [facility] History of surgery on left wrist Removal of ganglion cyst (2008) Torn TFCC (2016) History of total knee replacement (08/01/24) Left TKA: LMA#4 + regional, [facility] Per anesthesiology consultation note 07/13/24, "patient states would like general anesthesia for upcoming surgery due to history of awareness under spinal with sedation for previous orthopedic surgery at [facility]." Skin tag of labia Removed Status post LASIK surgery of both eyes 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 Physical Exam Vital Signs Vitals BP 111/69 P 82 TEMP 98.1 SP02 96% on RA RESP 18 Physical Patient resting comfortably in chair in no acute distress, alert and oriented, responding appropriately throughout visit Full cervical extension range of motion without pain TMD 3.5 finger breadths Mallampati Score 3 Dentition: crown and repaired upper right tooth, denies chipped or loose teeth, caps, implants or bridges Lungs: normal respiratory effort. Good air movement, clear throughout to auscultation, no adventitious breath sounds Cardiac: regular rate and rhythm, no murmurs noted Carotid arteries: negative bruit bilat Lab Results Anesthesia Preop Results Results Anesthesia Widget: WBC 9.62 K/ul (4.8-10.8) 07/11/25 Hgb 13.1 g/dL (12.0-16.0) 07/11/25 Hct 37.2 % (37.0-47.0) 07/11/25 Plt 313 K/uL (130-400) 07/11/25 Na 135 mmol/L (136-145) L 07/11/25 K 4.1 mmol/L (3.5-5.1) 07/11/25 Cl 102 mmol/L (98-107) 07/11/25 CO2 26 mmol/L (21-32) 07/11/25 BUN 14 mg/dl (6-23) 07/11/25 Creat 0.63 mg/dl (0.6-1.2) 07/11/25 Glucose Level 93 mg/dl (70-99(Fasting)) 07/11/25 PT 10.3 Seconds (9.0-12.0) 07/11/25 PTT 25 Seconds (21-31) 07/11/25 INR 1.0 (0.9-1.1) 07/11/25 Blood Type A Negative 07/11/25 Antibody Screen NEGATIVE 07/11/25 Testing Electrocardiogram Date: 07/11/25 NSR, rate 78 bpm Chest X-Ray Date: 07/11/25 Cardiomediastinal and hilar silhouettes are within normal limits. No pneumothorax, pleural effusion, airspace consolidation or pulmonary edema. Spondylotic spurring of the spine. IMPRESSION: No acute process.
--- NOTE | 2025-07-24 13:36 | History & Physical Report ---
Date of Service July 24, 2025 Assessment & Plan (1) Right knee DJD: 49-year-old female status post a left knee replacement a year ago and 5 years out from a right hip replacement with advanced right knee DJD. A very stiff knee. She has failed conservative measures. She is ready to have her right knee fixed. Very happy with the left knee. Plan: We are going to take her to the operating room and do a right knee replacement. The risks met this procedure explained. Informed consent was obtained. Will use aspirin for DVT prophylaxis. She is going to do this under general anesthesia with a block similar to last time as she had a middle cervical but experience with a spinal anesthetic at [facility] with her hip surgery. Still has [facility] and her mom is going to stay with her. She will follow-up 2 weeks postop. (2) History of total knee replacement: (3) History of right hip replacement: History of Present Illness Chief Complaint: . Persistent right knee pain and discomfort. Primary Care Provider: Liban Henderson MD . The patient is a 49-year-old female who presents specifically for surgical treatment of her right knee at this point. She got a long history of joint problems in the past and had her right hip replaced at [facility] due to a congenital hip abnormality 5 years ago and a left knee replacement done myself a year ago. She has done well. She continues to be limited by right knee pain and discomfort. She has been through extensive conservative treatment which just has not helped much. 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 Happy with her left knee and her right hip. She is ready to have her right knee fixed. Allergies Allergy/AdvReac Type Severity Reaction Status Date / Time No Known Drug Allergies Allergy Verified 06/29/25 11:58 Home Medications Medication Instructions Recorded Confirmed Type montelukast 10 mg tablet 10 mg PO HS 08/19/19 06/29/25 History albuterol sulfate 90 mcg/actuation 3 puffs inhalation Q6H PRN 03/03/20 06/29/25 Rx aerosol inhaler shortness of breath or wheezing #8.5 grams artificial tears(hypromellose) 0.3 1 drp OPB BID PRN Dry Eyes 03/03/20 06/29/25 History % eye gel (GenTeal Tears Severe) pediatric multivitamin no.7-folic 100 mcg PO QPM 03/03/20 06/29/25 History acid 100 mcg chewable tablet (Flintstones Tab Chew) carboxymethylcellulose sodium 0.25 1 drp ophthalmic (eye) QAM PRN 07/01/22 06/29/25 History % eye drops in a dropperette dryness (TheraTears) creatine monohydrate 1 ea PO DAILY 07/01/22 06/29/25 History diphenhydramine HCl 25 mg capsule 25 mg PO TID PRN Allergy Symptoms 07/01/22 06/29/25 History (Benadryl) melatonin 3 mg tablet 3 mg PO HS PRN Sleep 07/01/22 06/29/25 History fexofenadine 180 mg tablet 180 mg PO QAM 06/29/24 06/29/25 History (Allergy Relief (fexofenadine)) fluticasone propionate 50 2 spray intranasal QAM PRN 06/29/24 06/29/25 History mcg/actuation nasal Congestion spray,suspension amoxicillin 500 mg tablet 2,000 mg (4 x 500 mg) PO .COMPLEX 02/07/25 06/29/25 Rx #60 tabs bupropion HCl 75 mg tablet 75 mg PO TID 06/21/25 06/29/25 History dexmethylphenidate 10 mg 10 mg PO QAM 06/21/25 06/29/25 History capsule,extended release [id number] estradiol 0.05 mg/24 hr semiweekly 1 patch transdermal 2XWK #24 ea 06/21/25 06/29/25 Rx transdermal patch progesterone micronized 100 mg 100 mg PO HS #90 caps 06/21/25 06/29/25 Rx capsule (Prometrium) estradiol 10 mcg vaginal tablet 10 mcg vaginal .twice week 1 month 06/27/25 06/29/25 Rx (Vagifem) #8 tabs acetaminophen 500 mg tablet 1,000 mg PO Q8H PRN Pain 06/29/25 06/29/25 History (Tylenol Extra Strength) meloxicam 15 mg tablet 15 mg PO QAM 06/29/25 06/29/25 History Past Med/Surg History Problem List Encounter for pre-operative examination Right knee DJD MARY ALICE (stress urinary incontinence, female) Tonsillar hypertrophy Seasonal allergies (Chronic) Deviated nasal septum (Chronic) Medical History ADHD Degenerative arthritis of knee, bilateral Scoliosis "Mild" Osteoarthritis History of anemia Insomnia History of anxiety Hx of migraines Environmental and seasonal allergies Asthma "Environmental triggers" Controlled, stable per pt Sleep apnea CPAP (compliant) History of abnormal cervical Pap smear Surgical History History of total knee replacement (08/01/24) Left TKA: LMA#4 + regional, [facility] Per anesthesiology consultation note 07/13/24, "patient states would like general anesthesia for upcoming surgery due to history of awareness under spinal with sedation for previous orthopedic surgery at [facility] History of anesthesia reaction "Takes a while to initially work" Slow to wake. 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) History of surgery on left wrist Removal of ganglion cyst (2008) Torn TFCC (2016) History of nasal surgery Repair and partial reconstruction following dog bite (1978) History of hip surgery As an for right hip dislocation during (1976) "complex surgery" History of section 2004- twins/gestational surrogacy History of gynecologic surgery Cervical loop electrosurgery (2013) History of cholecystectomy 2015 Family History Father Hypertension Grandmother Diabetes Thyroid disease Mother Dyslipidemia Sinusitis Hypertension Other Lung cancer No family history of adverse response to anesthesia No family history of bleeding disorder Denies family history of Ovarian cancer Prostate cancer Myocardial infarction Breast cancer Colorectal cancer Social History Smoking Status: Never smoker Second Hand Exposure: Yes (as a child); Do You Dip or Chew Tobacco: No; Hx Alcohol Use: Yes Preferred Language: Urdu Communication Ability: Effective Sap Bpc Architect Required: No Beliefs That Will Affect Care: None marital status: Current Living Situation: Alone current occupational status: employed 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 Physical Exam . Physical examination reveals a pleasant middle-aged female. Looks me in good health. Examination of the right knee reveals patient walks with a bit of a limp. Walks with her knee slightly bent. She got a moderate soft tissue enve alfredo. She has about a 10 degree flexion contracture and only bends at about 105 degrees. Very stiff knee. No particular pain with hip motion. She is neurologically intact. Examination left knee reveals a well-healed incision. No swelling. Knee alignment is anatomic. Range of motion 0-1 20. No instability. No pain with hip motion. Neck trachea midline, no thyromegaly Respiratory normal respiratory effort, lungs clear to auscultation Cardiovascular RRR, no murmur, no edema Gastrointestinal (Abdomen) normal bowel sounds, soft, nontender, no hepatosplenomegaly Results & Data Results & Data Laboratory Results . Diagnostic Findings . X-rays of the right knee were reviewed. Shows advanced right knee tricompartment DJD. She has got osteophytes in all 3 compartments. Degenerative changes in all 3 compartments. The left knee replacement looks in good position without problems. PG Care Time/CCT Total # of Minutes Spent Total Time Spent with Patient: Total time spent is greater than 50% in coordination of care (as documented) at patient's floor/unit and/or counseling patient: Coding Level of Care Code None Diagnoses Right knee DJD M17.11 History of total knee replacement Z96.659 History of right hip replacement Z96.641
[2025-08-01] MEDS: ACETAMINOPHEN 500 MG TAB PO SCH ×2 (06:13→14:42)
[2025-08-01] MEDS: LR 15ML/HR IV SCH (06:13)
[2025-08-01] MEDS: CeleBREX 200 MG CAP PO SCH (06:13)
[2025-08-01] MEDS: LR 60ML/HR IV SCH (06:13)
[2025-08-01] MEDS: FAMOTIDINE 20 MG TAB PO SCH (06:14)
[2025-08-01] MEDS: METOCLOPRAMIDE HCL 10 MG TABLET PO SCH (06:14)
[2025-08-01] MEDS: dexAMETHasone**PF** 10 MG/ML VIAL IV SCH (06:14)
[2025-08-01] MEDS ORDERED: BUPIVACAINE 0.5 % 5 MG/1 ML PF 10ML VIAL ONE (06:32)
[2025-08-01] MEDS ORDERED: ROPIVACAINE 0.5% 5 MG/ML 30 ML VIAL ONE (06:32)
[2025-08-01] MEDS ORDERED: MIDAZOLAM HCL 1 MG/ML 2ML VIAL ONE (06:45)
--- NOTE | 2025-08-01 06:45 | History & Physical Bridge Note ---
Date of Service August 01, 2025 History & Physical Bridge Note I have examined the patient, reviewed the History & Physical and in the interval since the performance of the History & Physical I have noted the following changes of clinical significance: no changes noted
[2025-08-01] MEDS ORDERED: PROPOFOL IV EMULSION 10 MG/ML 20 ML VIAL IV ONE ×2 (06:52→07:34)
[2025-08-01] MEDS ORDERED: ONDANSETRON INJ 2 MG/ML 2 ML VIAL ONE (06:52)
[2025-08-01] MEDS ORDERED: ONDANSETRON INJ 2 MG/ML 2 ML VIAL IV PRN (07:10)
[2025-08-01] MEDS: ceFAZolin 3000MG 3,000 MG/72.5 ML BAG IV SCH (07:10)
[2025-08-01] MEDS ORDERED: ATROPINE SULFATE 0.1 MG/ML 10ML SYR IV PRN (07:10)
[2025-08-01] MEDS ORDERED: PROMETHAZINE HCL 6.25 MG in SODIUM CHLORIDE 0.9% 50 ML IV PRN (07:10)
[2025-08-01] MEDS: ORTHO JOINT ANESTHETIC ONE (08:09)
[2025-08-01] MEDS: ROPIV 0.5% 246mg, Ketorolac 30mg, EPINEPHrine 0.5mg in NSS INFIL SCH (08:18)
--- NOTE | 2025-08-01 09:12 | Operative Report ---
PG Post Operative Report Pre & Post Diagnosis Operation Date: 08/01/25 07:00 Pre-Op Diagnosis: Right knee Degenerative Joint Disease Post-Op Diagnosis: Right knee Degenerative Joint Disease I identified the patient and participated in the time-out.: Yes Procedure Operation Date: 08/01/25 07:00 Actual Procedures p Right Total Knee Arthroplasty(Right) - Gustabo Cedeno MD Surgeon Gustabo Cedeno MD Reinforcing Steel Placer John Polanco PA-C Estimated Blood Loss 50 Findings Consistent with Post-Op Diagnosis Specimens Right knee sent for pathology Anesthesia Type General Regional Complications none Disposition Accompanied Patient To Recovery: No Indications The patient is a 49-year-old female whose had a host of orthopedic issues over the years. She had a right hip replaced 5 years ago and that her left knee a year ago. She continued be debilitated and limited by her right knee pain discomfort and stiffness. She failed all conservative measures. She elected proceed with total knee arthroplasty. Description of Procedure Operative implants consists of: 1. Biomet Vanguard size 65 right posterior stabilized femoral component. 2. Biomet size 67 tibial tray. 3. 10 mm posterior stabilized polyethylene insert. 4. 31 x 8 all poly patella. The patient was taken to the op room, identified, placed on the operating table in the supine position. All contact areas were appropriately padded. IV antibiotics were provided by the anesthesia team. A adductor canal block had provided in the holding area. A general anesthetic was implemented at the patient's request. A right thigh tent was then placed. The right lower extremity was then prepped and draped in usual sterile fashion. The right leg was elevated and exsanguinated with use of an Esmarch and tourniquet was placed 300 mmHg. An anterior approach of the right knee was then performed through a longitudinal incision centered over the patella. Sharp dissection was Through subcutaneous tissue down the extensor mechanism. A medial parapatellar arthrotomy incision was made. Some subperiosteal dissection was carried out medially. The fat pad was resected from the patella tendon. Lateral patellofemoral ligament was released. Patella subluxate laterally and the knee was flexed. The osteophytes taken distal femur. The ACL and PCL were then released from the distal femur and the tibia subluxated anteriorly. The external tibial LYMErix then placed on the anterior face of the tibia and adjusted 12 mm medially. The proximal tibial cut was made to remove about 3 to 4 mm of bone from the medial side of the tibia. She did not have a lot of tibial wear. He the tibia sized to a size 67. Attention then drawn the femur. The distal femur was then with a sharp drill. Intramedullary canal was suction. The right 5 degree valgus cutting guide was placed. The distal femoral cutting block was pinned in place. Distal femoral cut was made to take an additional 5 mm of bone off distal femur due to her flexion contracture. The femur was then sized to a size 65. The AP cutting block was pinned parallel to the epicondylar axis which was 4 degrees of external rotation. Anterior cut, anterior chamfer, posterior cut, posterior chamfer cuts were made. The box cutting guide was then placed and just slight lateral and the box cut was made. The knee was flexed. The remnants of the medial and lateral menisci were excised. The osteophytes taken off the posterior aspect of femur. A trial femoral component was placed. The tibial tray was pinned in Halley external rotation and the drill and stem punch used to create defect in the proximal tibia for the tibial tray. The knee was then trialed and the 10 mm insert fit most appropriately. I did Ayan for a little bit of loose as she was pretty stiff preoperatively. Attention drawn the patella. The patella was cleaned of all soft tissue. Patella thickness measured 19 mm in thickness was cut down to 13. We sized to a size 31 patella. The lug holes were drilled for 31 patella. The lateral osteophyte was removed. Patella button was placed. The knee was taken through range of motion and the patella tracked nicely with no thumbs test. Attention jointer placed in permanent components. All trial components were removed. Bone plug was placed in the distal femur limit blood loss. A double batch Palacos G cement was mixed. A Biomet Vanguard size 65 right posterior stabilized femoral component, a size 67 tibial tray, a 10 mm Po stabilized polyethylene insert, 31 x 8 all poly patella then cemented in place. Knee was brought out into full extension till cement hardened. Final cement check was then performed. The pericapsular tissues were injected with total of 100 cc Ortho mix. The patient did receive 1 g tranexamic acid. The t ourniquet was then let down for final tourniquet time of 61 minutes. Hemostasis assured use electrocautery. The extensor mechanism was then closed with combination 1 PDS suture Vicryl suture in a [id number] fashion. Extensor Meclomen checked found to be intact the subcutaneous tissue was then closed with 2 Dexon suture in a buried interrupted fashion skin was closed skin karen. Leg was then cleaned and dried and a sterile dressing with Xeroform, 4 fours, sterile cast padding, Brennen bandage were applied. Patient then transferred to the recovery room in stable condition. Patient tolerated the procedure well and there were no complications. John Polanco, my physician intellectual property legal assistant, was present for the entire procedure. His assistance was essential and required for appropriate patient positioning, prepping and draping, surgical exposure, performing the technical details of the operation, placement the implants, closure of the wound, and placement of the sterile bandage. I attest to the content of the Intraoperative Record and any orders documented therein. Any exceptions are noted below.
[2025-08-01] MEDS: HYDROmorphone INJ 2 MG/ML SYR/VIAL IV PRN (09:29)
--- NOTE | 2025-08-01 10:07 | Anesthesiology Progress Note ---
Date of Service August 01, 2025 Anesthesia Post Procedure Vital Signs Vital Signs: Temp Pulse Resp BP Pulse Ox O2 Del Method O2 Flow Rate 08/01/25 09:50 36.9 C 75 15 145/86 H 96 Room Air 08/01/25 09:40 73 16 121/89 95 Oxymask 2 08/01/25 09:30 72 15 152/86 H 96 Oxymask 4 08/01/25 09:20 74 18 148/80 H 96 Oxymask 4 08/01/25 09:10 75 14 152/87 H 99 Oxymask 4 08/01/25 09:00 36.4 C L 77 16 161/93 H 95 Oxymask 8 08/01/25 05:56 36.6 C 76 20 150/83 H 95 Room Air Pain Intensity Right Knee: Pain Intensity: 4 Transfer of Care Handoff Completed per policy Notes Mental Status: alert / awake / arousable and participated in evaluation Patient Amnestic to Procedure: Yes Nausea / Vomiting: adequately controlled Pain: adequately controlled Airway Patency, RR, SpO2: stable & adequate BP & HR: stable & adequate Hydration State: stable & adequate Anesthetic Complications: no major complications apparent
--- NOTE | 2025-08-01 10:13 | XRay Report ---
XR knee RT 1 or 2V routine CLINICAL HISTORY: Postoperative evaluation. COMPARISON: Right knee radiographs June 12, 2025. FINDINGS: Alignment of the total right knee arthroplasty is anatomic. There is no periprosthetic fra cture or unexpected radiopaque foreign body. There are skin karen. IMPRESSION: Expected findings following total right knee arthroplasty. ACT 112: Negative or not required by law. Electronically signed by: Jhony Palacios M.D. 08/01/2025 10:12 AM
[2025-08-01] MEDS ORDERED: ALUMINUM/MAGNESIUM SUSP 30 ML UDC PO PRN (10:37)
[2025-08-01] MEDS ORDERED: FLUTICASONE PROPIONATE NA SPR 16 GM BTL NAE PRN (10:37)
[2025-08-01] MEDS ORDERED: MELATONIN 3 MG TAB PO PRN (10:37)
[2025-08-01] MEDS ORDERED: METOCLOPRAMIDE HCL INJ 5 MG/ML 2 ML VIAL IV PRN (10:37)
[2025-08-01] MEDS ORDERED: CARBOXYMETHYLCELLULOSE SODIUM 0.25% OP PRN (10:37)
[2025-08-01] MEDS ORDERED: HYDROmorphone INJ 0.5 MG/0.5 ML SYR IV PRN (10:37)
[2025-08-01] MEDS ORDERED: diphenhydrAMINE Capsule 25 MG CAP PO PRN (10:37)
[2025-08-01] MEDS ORDERED: ALBUTEROL HFA 8 GM INHALER INH PRN (10:37)
[2025-08-01] MEDS ORDERED: NALOXONE HCL 0.4 MG/1 ML VIAL/CARP IV PRN (10:37)
[2025-08-01] MEDS ORDERED: MAGNESIUM HYDROXIDE SUSP 30 ML UDC PO PRN (10:37)
[2025-08-01] MEDS ORDERED: CREATINE MONOHYDRATE PO SCH (10:37)
[2025-08-01] MEDS ORDERED: ARTIFICIAL TEARS OP PRN (11:02)
[2025-08-01] MEDS: FEXOFENADINE HCL 180 MG TAB PO SCH (14:35)
[2025-08-01] MEDS: SENNA 8.6 MG TAB PO SCH (14:43)
[2025-08-01] MEDS: SODIUM CHLORIDE 0.9% 1,000 ML IV SCH (15:44)
[2025-08-01] MEDS: KETOROLAC 30 MG/ML VIAL IV SCH (16:48)
[2025-08-01] MEDS: TRANEXAMIC ACID / 0.7% NACL 1,000 MG/100 ML BAG IV SCH (16:52)
[2025-08-01] MEDS: ASCORBIC ACID 500 MG TAB PO SCH (17:12)
[2025-08-01] MEDS: ONDANSETRON INJ 2 MG/ML 2 ML VIAL IV PRN (20:53)
[2025-08-01] MEDS ORDERED: SENNA 8.6 MG TAB PO SCH (21:00)
[2025-08-01] MEDS: ASPIRIN 81 MG ECTAB PO SCH (21:41)
[2025-08-01] MEDS: MONTELUKAST SODIUM 10 MG TABLET PO SCH (22:11)
[2025-08-01] MEDS: MULTIVITAMIN CHEWABLE TAB PO SCH (22:11)
[2025-08-01] MEDS: DOCUSATE SODIUM 100 MG CAP PO SCH (22:11)
[2025-08-02 06:39] LABS: Hematocrit (blood only) 33.1 % (37.0-47.0); Hemoglobin 11.6 g/dL (12.0-16.0); Mean Corpuscular Hemoglobin 30.4 pg (25.0-34.0); Mean Corpuscular Volume 86.9 fL (80.0-100.0); Platelet Count 262 K/uL (130-400); RDW Standard Deviation 40.3 fL (36.4-46.3); Red Blood Count 3.81 M/uL (4.20-5.40); White Blood Count 13.92 K/ul (4.8-10.8)
[2025-08-02 07:02] LABS: Anion Gap 7.0 (3-11); Blood Urea Nitrogen 7.0 mg/dl (6-23); Calcium 8.7 mg/dl (8.6-10.3); Carbon Dioxide 28.0 mmol/L (21-32); Chloride 101.0 mmol/L (98-107); Creatinine Clr Calc Pharmacy 148.6 ml/min; Glucose 123.0 mg/dl (70-99(Fasting)); Potassium 4.0 mmol/L (3.5-5.1); Sodium 136.0 mmol/L (136-145)
--- NOTE | 2025-08-02 08:03 | Orthopedic Progress Note ---
Date of Service August 02, 2025 Assessment & Plan (1) Status post total right knee replacement: * Continue Current Treatment * Disposition: home * Daily treatment: Physical Therapy/ Occupational Therapy per protocol * Weight bearing status: WBAT * Continue to monitor for ABLA * Pain control * DVT prophylaxis, ASA * Office/hospital f/u 2 weeks for progress check and staple/suture removal * Plan for discharge today pending PT/OT clearance Subjective .Active Problems: S/p right TKA POD 1 49 y/o female s/p right TKA. Doing well overall, pain managed and improved function. Denies fever/chills, chest pain/SOB, nausea/vomiting. Otherwise no complaints. Review of Systems All systems reviewed & are unremarkable except as noted in HPI & below. Physical Exam * General: Alert and oriented, no acute distress * Constitutional: well-developed, well-nourished. * Respiratory: Normal respiratory effort, no distress * Gastrointestinal: No tenderness to palpation, no rigidity or guarding. * Skin: No rash or lesion. * Neurologic: Grossly normal * Musculoskeletal: right knee surgical dressing CDI, not removed for exam. Otherwise no obvious deformity or overlying skin changes RLE. Diffuse TTP distal thigh and knee region. Otherwise no specific tenderness of proximal thigh, lower leg, foot/ankle. AROM knee flexion 60 degrees. AROM foot/ankle intact. Sensation intact plantar/dorsal foot. Brisk capillary refill. Results & Data Results & Data Laboratory Results . Diagnostic Findings Knee X-Ray 08/01/25 09:05 XR knee RT 1 or 2V routine CLINICAL HISTORY: Postoperative evaluation. COMPARISON: Right knee radiographs June 12, 2025. FINDINGS: Alignment of the total right knee arthroplasty is anatomic. There is no periprosthetic fracture or unexpected radiopaque foreign body. There are skin karen. IMPRESSION: Expected findings following total right knee arthroplasty. ACT 112: Negative or not required by law. Electronically signed by: Jhony Palacios M.D. 08/01/2025 10:12 AM PG Care Time/CCT Total # of Minutes Spent Total Time Spent with Patient: Total time spent is greater than 50% in coordination of care (as documented) at patient's floor/unit and/or counseling patient: Coding Level of Care Code 29521 Post Operative Follow-Up Diagnoses Status post total right knee replacement Z96.651
[2025-08-02] MEDS: dexAMETHasone 10 MG in SYRINGE 0 ML IV SCH (08:35)
[2025-08-02] MEDS ORDERED: MULTIVITAMIN TAB PO SCH (09:00)
[2025-08-02 10:48] VITALS: BP 136/83; PULSE 87; RESP 14; TEMP 97.9; O2SAT 95
== END 2025-08-02 12:56 | disposition home health service (06) ==
LOC: ASU 05:24 → 3E 05:24